=== PATIENT | male | born 1945 | race Caucasian/White ===

== ENCOUNTER → 2018-11-13 10:51 | Outpatient (CLI) | payer MEDICARE, BC ==
--- NOTE | 2018-11-16 13:30 | ST ---
PATIENT:MELISA HA MEDICAL RECORD: [id number] SEX: M LOCATION:[facility] ORDER #: ADMISSION DATE: 11/13/18 AGE OF PATIENT: 73 REFERRING PHYSICIAN: INTERPRETING PHYSICIAN: SILAS AGUILLON MD DATE OF SERVICE: 11/13/2018 PROCEDURE: Nuclear stress test. INDICATIONS: Abnormal exercise stress test, shortness of breath, hyperlipidemia, coronary artery disease. She was exercised on standard Lexiscan protocol with 33 mCi of sestamibi injected at peak stress, 11 mCi used previously for rest images. FINDINGS: Gated SPECT reveals preserved ejection fraction at 62% with good wall motion and thickening and brightening throughout all segments. SPECT imaging: Cardiolite was used as myocardial perfusion agent. There is homogeneous uptake throughout all segments at rest and stress with no evidence of inducible ischemia or previous infarction. OVERALL IMPRESSION: 1. This is a normal nuclear stress test with no evidence of inducible ischemia or previous infarction. 2. Gated SPECT reveals a preserved ejection fraction at 62%. In this patient with ongoing symptomatology, the current scan does not suggest the presence of hemodynamically significant coronary artery disease. Evaluate noncardiac etiology of chest pain. TRANSINT:[id number] Voice Confirmation ID: [id number] DOCUMENT ID: [id number] SILAS AGUILLON MD at 1330 CC: MELI NAZARIO [id number] DICTATION DATE: 11/14/18 1223 NUCLEAR PHYSICIST: 11/15/18 0625 DEP CLI 11/13/18 [place] [id number] [place] [id number]
== END | disposition home or self-care (01) ==
LOC: D.HCCARDIO 10:51
PROVIDERS: ATTEND Internal Medicine Interventional Cardiology
DX: I25.10 Atherosclerotic heart disease of native coronary artery without angina pectoris (principal)